=== PATIENT | female | born 1950 | race Caucasian/White ===

== ENCOUNTER 2019-10-22 10:39 | Outpatient (CLI) | payer MEDICARE, MEDICAID, SELFPAY ==
--- NOTE | 2019-10-22 11:07 | MM_ITS ---
WS: [id number] BILATERAL SCREENING MAMMOGRAM WITH GERONIMO DISPLACEMENT VIEWS. CAD PERFORMED. HISTORY: SCREENING COMPARISON: 09/17/2018 and 04/02/2006 Bilateral craniocaudal and mediolateral like views are performed. Geronimo displacement views in CC and MLO projection also performed. Breasts composition: There are scattered areas of fibroglandular density. Prepectoral and plantar partially calcified. No change in position or distention. There are numerous scattered asymmetries over each breast. No interval change. No suspicious grouping of calcifications. MM/[place] [id number] IMPRESSION: BI-RADS: 2-Benign FOLLOW-UP: 1 Year Follow-up
== END 2019-10-22 10:40 | disposition home or self-care (01) ==
LOC: RADSHAW 10:45
PROVIDERS: PCP Internal Medicine; Visit Provider Internal Medicine
DX: Z12.31 Encounter for screening mammogram for malignant neoplasm of breast (principal)
CPT/HCPCS: 77067

== ENCOUNTER 2019-11-03 20:00 | Outpatient (CLI) | payer MEDICARE, MEDICAID, SELFPAY | END 2019-11-03 20:01 | disposition home or self-care (01) | LOC: SLEEP 11-04 09:08 | PROVIDERS: PCP Internal Medicine; Visit Provider Nurse Practitioner Family | DX: G47.30 Sleep apnea, unspecified (principal) | CPT/HCPCS: 95810 ==

== ENCOUNTER 2021-01-28 06:47 | Observation (INO) | payer MEDICARE, MEDICAID, SELFPAY ==
[2021-01-28] VITALS (10 sets, daily range): BP systolic 89–138; BP diastolic 64–90; PULSE 54–68; RESP 16–18; TEMP 36.9–37.1; O2SAT 94–99; BMI 25.7
--- NOTE | 2021-01-28 07:01 | ECG_ITS ---
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 Measurements Intervals [place] Rate: 57 P: 29 VA: 152 QRS: 41 QRSD: 86 T: 30 QT: 426 QTc: 418 Interpretive Statements SINUS BRADYCARDIA NONSPECIFIC T-WAVE ABNORMALITY No previous ECG available for comparison Electronically Signed On 01-28-2021 18:32:22 CDT by Aguila Ann M.D. [id number]
--- NOTE | 2021-01-28 07:01 | XRR_ITS ---
PROCEDURE INFORMATION: Exam: XR Left Hand Exam date and time: 01/28/2021 7:01 AM Age: 70 years old Clinical indication: Injury or trauma; Other: Hit on something; Blunt trauma (contusions or hematomas); Bilateral; Injury date: Today; Injury details: PT hit posterior hand on flower pot this am, pain and brusing to posterior hand pinky area; Additional info: Pain fall TECHNIQUE: Imaging protocol: XR Left hand. Views: 3 or more views. COMPARISON: No relevant prior studies available. FINDINGS: Bones/joints: Osseous structures of the hand are without an acute process. Distal radioulnar joint and radiocarpal joints grossly normal. Carpus without fracture. Metacarpals and phalangeal without fracture or dislocation. No erosive changes or periarticular calcifications. Soft tissues: Normal. XR/XR hand LT min 3V* [id number] IMPRESSION: Normal hand. No fracture. No foreign body. Radiation Dose CTDIVOL = (mGy): DLP = (mGy-cm)
--- NOTE | 2021-01-28 07:27 | CT_ITS ---
WS: [id number] CT HEAD NONCONTRAST HISTORY: fall, closed head injury TECHNIQUE: Contiguous axial imaging performed through the brain in 2.5 mm imaging. Bone and soft tiss ue windows. Sagittal and coronal reformats reviewed. All CT scans at [facility] use at least one of these dose optimization techniques: automated exposure control; mA and/or kV adjustment per pa tient size (includes targeted exams where dose is matched to clinical indication); or iterative recon struction. DLP: 814.71 mGy.cm COMPARISON: 01/26/2011 No acute intracranial hemorrhage, midline shift or mass effect. Mild atrophy and mild chronic microvascular ischemic disease. No large infarcts. Ventricles: Normal size with no hydrocephalus. Paranasal sinuses: As visualized are clear. Mastoid air cells: Well pneumatized. Calvarium and scalp: Skull is intact with no soft tissue edema or swelling. LEFT optic nerve is enlarged as compared to the RIGHT. Very similar to the prior study of 01/26/2011. This was described on a prior CT of 01/26/2011. CT/CT head wo con* [id number] IMPRESSION: 1. No acute intracranial hemorrhage or edema. 2. Mild atrophy and mild chronic microvascular ischemic disease. 3. Long-term stability of an asymmetrically enlarged LEFT optic nerve sheath.
[2021-01-28 07:45] LABS: Basophils # 0.1 10^3/uL (0.0-0.1); Basophils % 0.7 %; Eosinophils # 0.2 10^3/uL (0.0-0.8); Eosinophils % 1.9 %; Hematocrit 40.1 % (37.0-47.0); Hemoglobin 13.8 g/dL (11.5-15.3); Lymphocytes % 11.8 %; Mean Corpuscular HGB Conc 34.4 g/dL (30.0-36.0); Mean Corpuscular Hemoglobin 31.2 pg (28.0-34.0); Mean Corpuscular Volume 90.7 fl (81-99); Monocytes # 0.4 10^3/uL (0.2-0.9); Monocytes % 4.9 %; Neutrophils # 7.05 10^3/uL (1.8-7.7); Neutrophils % 80.5 %; Nucleated Red Blood Cells % 0 %; Platelet Count 322 10^3/cmm (130-400); Red Blood Count 4.42 10^6/uL (4.1-5.3); Red Cell Distribution Width 12.3 % (12.1-15.1); White Blood Count 8.8 10^3/uL (4.0-10.0)
[2021-01-28 07:58] LABS: Add Urine Microscopic? YES; Bilirubin Urine Neg (Negative); Blood Urine 3+ (Negative); Glucose Urine UA Norm (Normal); Ketones Urine Negative (Negative); Leukocyte Esterase Urine Negative (Negative); Nitrate Urine Negative (Negative); Protein Urine Neg (Negative); Specific Gravity, Urine 1.025 (1.005-1.030); Urine Appearance Clear (CLEAR); Urine Color Yellow (Yellow); Urobilinogen Urine Norm (Negative); pH Urine 5 (5-7)
[2021-01-28 08:00] LABS: Add Urine Culture? No; Bacteria Urine 1+ /hpf; Mucus Urine 1+ /hpf; RBC Urine 0-4 /hpf (0-2)
[2021-01-28 08:15] LABS: Alanine Aminotransferase 17 U/L (0-33); Alkaline Phosphatase 171 IU/L (35-105); Anion Gap 14.2 (5-19); Aspartate Amino Transferase 12 U/L (0-32); Blood Urea Nitrogen 13 mg/dL (8-23); Calcium 9.1 mg/dL (8.5-10.5); Carbon Dioxide 26 mmol/L (22-29); Chloride 106 mmol/L (98-107); Globulin 2.6 g/dL (1.3-4.6); Glucose 98 mg/dL (65-115); Osmolality Calculated 294 mOsm/kg (285-295); Potassium 4.2 mmol/L (3.5-5.1); Sodium 142 mmol/L (136-145); Total Bilirubin 0.5 mg/dL (0.15-1.2); Total Protein 6.6 g/dL (6.6-8.7)
--- NOTE | 2021-01-28 09:12 | ED_ITS ---
HPI - Dizziness General: Chief Complaint: Dizziness Stated Complaint: NAUSEA/VOMITING Time Seen by Provider: 01/28/21 07:00 History of Present Illness: HPI Narrative: 70-year-old female presents emergency room with episode of orthostasis immediately after standing.. Patient was sleeping she got up suddenly and immediately jumped to her feet she got lightheaded and dizzy when she fell she hurt her left hand. She not strike her head or lose consciousness although should she still somewhat dizzy and disoriented. She complaining of nausea in route to the hospital by with EMS and she was given Zofran. She not had any vomiting or diarrhea she is not had any cough or shortness of breath. Patient is able answer most questions okay however she is little bit disoriented to time. She denies any chest pain with any of these episodes. She has had similar episode in the past no recent medication changes. MD elicited complaint: dizziness, lightheadedness and near syncope Onset (ago): minute(s) Timing: sudden onset Severity: mild Description: lightheadedness and near-syncope Context: change in body position History of similar symptoms: Yes Exacerbating factors: change in body position Relieving factors: remaining still Associated symptoms: Denies change in hearing, chest pain, chills, cough, diaphoresis, ear discharge, ear pressure, fevers/chills, headache(s), malaise, nausea, nasal congestion, palpitations, rash, short of breath, syncope, tinnitus, vomiting or weakness Associated neuro symptoms: Reports confusion; Deny difficulty speaking, dysphagia, diplopia, extremity weakness, facial numbness, facial weakness, gait changes, numbness in extremities or visual changes Review of Systems Const: Denies: chills, malaise or diaphoresis ENMT: Denies: ear discharge, change in hearing, tinnitus or nasal congestion Card: Denies: chest pain, palpitations or syncope Resp: Denies: dyspnea, productive cough or non-productive cough GI: Denies: nausea, vomiting or dysphagia : Denies: flank pain, difficulty voiding, dysuria, urinary frequency or urinary urgency Skin/Breast: Denies: rash or pruritus Neuro: Reports: confusion; Denies: headache(s) or numbness in extremities Physical Exam Const: COMMON NORMALS: no acute distress GENERAL APPEARANCE: cooperative and comfortable ORIENTATION/CONSCIOUSNESS: Yes awake HENMT: COMMON NORMALS: normocephalic, atraumatic, hearing grossly normal bilaterally, external ears normal, EAC's normal, TM's normal bilaterally, Normal nasal mucous membranes and turbinates present, moist oral mucous membranes and oropharynx normal HEAD & SCALP: normocephalic and atraumatic NOSE: Normal nasal mucous membranes and turbinates present EXTERNAL EAR: Yes external ears normal EXTERNAL AUDITORY CANAL: EAC's normal TYMPANIC MEMBRANE: TM's normal bilaterally Eye: COMMON NORMALS: Equal, round and reactive pupils present, EOMs intact bilaterally, conjunctivae normal and no scleral icterus CONJUNCTIVA: Yes conjunctivae normal PUPIL: Yes Equal, round and reactive pupils present Neck/C-Spine: COMMON NORMALS: full ROM, no lymphadenopathy, supple and no JVD Lymph: LYMPHATIC: no lymphadenopathy noted and no lymphedema noted Resp: COMMON NORMALS: normal respiratory effort, No retractions, No use of accessory muscles and clear to auscultation bilaterally AUSCULTATION: clear to auscultation bilaterally Cardio: COMMON NORMALS: no JVD, regular rate, regular rhythm and No murmurs present (Cardio) RATE: regular rate RHYTHM: regular rhythm GI: COMMON NORMALS: Soft to palpation and No hepatosplenomegaly present AUSCULTATION: Yes normoactive bowel sounds PALPATION: Yes Soft to palpation, No Tenderness to palpation present (GI), No Guarding due to palpation present (GI) and Yes No hepatosplenomegaly present Extremity: COMMON NORMALS: normal to inspection, capillary refill normal, no clubbing, cyanosis or edema, no calf tenderness and no pedal edema Skin: COMMON NORMALS: no rashes or lesions noted GENERAL SKIN EXAM: no rashes or lesions noted Course Vital Signs: Vital signs: Vital Signs Temperature 97.4 F L 01/29/21 08:00 Pulse Rate 89 01/29/21 10:01 Respiratory Rate 16 01/29/21 08:23 Blood Pressure 128/78 01/29/21 08:00 Pulse Oximetry 92 01/29/21 10:01 MDM - Dizziness MDM Narrative: Medical decision making narrative: Patient seemed to be doing better she was given fluids her pressure had improved she was feeling well and wanted to go home I went and talked to her and we are getting ready to discharge her however when we had her try to get up and ambulate she was unable to do so without the assistance to required assistance for any kind of movement or transfer. Initially became more confused and disoriented somewhat seem to be anxiety. Initial stroke score at best was 1 and a repeat it was unchanged he has some difficulty with placement of time but otherwise follows all commands and has no other focalized deficits. CT of her head was negative all labs and imaging reviewed as found on the chart. Patient is unsteady and weak and unable to go home at this point she may require an MRI. Considered CTA of the head however she has no vision problems and at best her stroke score is a 1, with more confusion than anything. Her symptoms began when she woke up after she sat up and tried to stand up quickly. Last known well would be sometime around 9-10 o'clock last night according to patient and family. Given that she is not a candidate for any kind of intervention with the low stroke score so CTA of the head and neck was not done in the emergency room. Discussed Dr. Falcon orders are written. Lab Data: Labs: Lab Results 01/28/21 01/28/21 01/28/21 07:20 07:20 07:30 WBC 8.8 10^3/uL 10^3/ uL (4.0-10.0) RBC 4.42 10^6/uL 10^6 /uL (4.1-5.3) Hgb 13.8 g/dL g/dL (11.5-15.3) Hct 40.1 % % (37.0-47.0) MCV 90.7 fl fl (81-99) MCH 31.2 pg pg (28.0-34.0) MCHC 34.4 g/dL g/dL (30.0-36.0) RDW 12.3 % % (12.1-15.1) Plt Count 322 10^3/cmm 10^3 /cmm (130-400) MPV 10.0 fL fL (7.4-10.4) Neut % (Auto) 80.5 % % Lymph % (Auto) 11.8 % % [place] % (Auto) 4.9 % % Eos % (Auto) 1.9 % % Baso % (Auto) 0.7 % % Neut # (Auto) 7.05 10^3/uL 10^3 /uL (1.8-7.7) Lymph # (Auto) 1.0 10^3/uL 10^3/ uL (0.8-4.8) [place] # (Auto) 0.4 10^3/uL 10^3/ uL (0.2-0.9) Eos # (Auto) 0.2 10^3/uL 10^3/ uL (0.0-0.8) Baso # (Auto) 0.1 10^3/uL 10^3/ uL (0.0-0.1) Nucleated RBC % (a uto) 0 % % Nucleated RBCs # 0.0 /100WBC /100W BC Sodium 142 mmol/L mmol/L (136-145) Potassium 4.2 mmol/L mmol/L (3.5-5.1) Chloride 106 mmol/L mmol/L (98-107) Carbon Dioxide 26 mmol/L mmol/L (22-29) Anion Gap 14.2 (5-19) BUN 13 mg/dL mg/dL (8-23) Creatinine 0.7 mg/dL mg/dL (0.5-0.9) GFR Calculation Not Reportable Glucose 98 mg/dL mg/dL (65-115) Calculated Osmolal ity 294 mOsm/kg mOsm/ kg (285-295) Calcium 9.1 mg/dL mg/dL (8.5-10.5) Total Bilirubin 0.5 mg/dL mg/dL (0.15-1.2) AST 12 U/L U/L (0-32) ALT 17 U/L U/L (0-33) Alkaline Phosphata se 171 IU/L H IU/L (35-105) Total Protein 6.6 g/dL g/dL (6.6-8.7) Albumin 4.0 g/dL g/dL (3.5-5.2) Globulin 2.6 g/dL g/dL (1.3-4.6) Urine Color Yellow (Yellow) Urine Appearance Clear (CLEAR) Urine pH 5 (5-7) Ur Specific Gravit y 1.025 (1.005-1.030) Urine Protein Neg (Negative) Urine Glucose (UA) Norm (Normal) Urine Ketones Negative (Negative) Urine Blood 3+ H (Negative) Urine Nitrate Negative (Negative) Urine Bilirubin Neg (Negative) Urine Urobilinogen Norm mg/dL mg/dL (Negative) Ur Leukocyte Beulah ase Negative (Negative) Urine RBC 0-4 /hpf H /hpf (0-2) Urine WBC None /hpf /hpf (0-5) Ur Squamous Epith Cells 10-15 /hpf H /hpf (0-5) Amorphous Sediment Not Reportable Urine Bacteria 1+ /hpf H /hpf (NONE) Urine Mucus 1+ /hpf /hpf Discharge Plan Discharge Patient Disposition: Home Clinical Impression: Orthostatic hypotension, Apnea, sleep Condition: Stable Discharge Diet: Usual diet Discharge Activity: Limit activity as instructed Coding Level of Care Code ED [employer] Worker for Marlee Rosales NIH stroke score NIHSS Level Of Consciousness - 1a: 1 Level Of Consciousness Questions - 1b: Both Correct Level Of Consciousness Commands - 1c: Both Correct Best Gaze - 2: Normal Visual Myers - 3: No Visual Loss Facial Palsy - 4: Normal Motor Arm Right - 5: No Drift Motor Arm Left - 5: No Drift Motor Leg Right - 6: No Drift Motor Leg Left - 6: No Drift Limb Ataxia - 7: Absent Sensory - 8: Normal Best Language - 9: No Aphasia Dysarthia - 10: Normal Extinction And Inattention - 11: 0 Score Total Score: 1
--- NOTE | 2021-01-28 12:49 | PC.NURSE ---
Pt up for discharge. This RN enters room at approximately 1046. Pt has increased weakness and bouts of confusion. ERP notified and comes to the room to reassess pt. ERP discussed admission with pt and with family. Pt agrees to admission into the hospital.
--- NOTE | 2021-01-28 13:06 | PC.PHAR ---
PT IS CONFUSED AND UNABLE TO VERIFY ALL HER MEDICATIONS-PTS SON IS UNSURE OF THE MEDICATIONS THE PT TAKES-T STATES SHE TAKES LISINOPRIL 5-10MG PRN PT STATES SHE HASNT TAKEN IN A WEEK-PT IS ALSO CONFUSED-RX FILLED ON 01/13/21 90D/S 10MG DAILY-PER ALMA DELIA AT [facility] STATES SHE DOESNT SEE ANYWHERE IN THE NOTES WHERE IT WAS CHANGED STATES THEY STILL HAVE 10MG DAILY-NOTES ARE MADE IN THE PHARMACY COMMENTS-MEDICATIONS ENTERED ARE MEDS THAT SHOW ON EXT MED HISTORY AND WHAT [facility] HAS ON THEIR MED LIST BESIDES IBU PT STATES SHE TAKES PRN
[2021-01-28] MEDS: acetaminophen 1,000 MG/100 ML PIGGYBACK 400 MG IV (13:14)
--- NOTE | 2021-01-28 16:41 | P.HP_ITS ---
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 She denied any chest pain, shortness of breath, nausea, palpitation, fever,cough. Work up done so far includes: C.T Head without contrast: No acute intracranial pathology XR hand LT : No fracture. CBC CMP did not show any gross abnormalities, urinalysis is clean. Orthostatic vital signs done in ER was positive: Review of Systems General: Reports: 10 or more systems reviewed and unremarkable except in HPI and below Narrative: 67-year-old currently not in acute distress being admitted for chest pain evaluation Const: Denies: fever(s), chills, body aches, change in appetite or diaphoresis Card: Denies: palpitations, edema, swelling of feet/ankles, dyspnea on exertion, orthopnea or leg pain with exertion Resp: Denies: dyspnea, productive cough, wheezing or pain on inspiration GI: Denies: abdominal pain, nausea, vomiting, diarrhea or constipation : Denies: flank pain Musc: Denies: back pain, extremity pain or extremity swelling Neuro: Denies: headache(s), difficulty walking or confusion Medications/Allergies Home Medications Medication Instructions Recorded Confirmed Last Taken Type ibuprofen 200 mg PO Q4H PRN 01/28/21 01/28/21 Unknown History lisinopril 5 - 10 mg PO DAILY PRN 01/28/21 01/28/21 Unknown History omeprazole 40 mg PO DAILY 01/28/21 01/28/21 Unknown History oxycodone-acetaminophen 1 tab PO TID PRN 01/28/21 01/28/21 Unknown History Allergies Allergy/AdvReac Type Severity Reaction Status Date / Time No Known Allergies Allergy Verified 06/09/20 08:35 Vitals/I&O/Wt Last Vital Signs Temp 98.8 F 01/28/21 06:51 Pulse 64 01/28/21 13:44 Resp 17 01/28/21 13:44 BP 115/75 01/28/21 13:44 Pulse Ox 96 01/28/21 13:44 01/28/21 01/28/21 01/28/21 06:59 14:59 22:59 Intake Total 100 / 100 Balance 100 / 100 Weight last 48 hrs Weight 68.039 kg Physical Exam Const: COMMON NORMALS: patient oriented x3 HENMT: COMMON NORMALS: normocephalic and atraumatic HEAD & SCALP: normocephalic and atraumatic Resp: COMMON NORMALS: clear to auscultation bilaterally AUSCULTATION: clear to auscultation bilaterally Cardio: COMMON NORMALS: regular rate, regular rhythm, S1 normal heart sound present, S2 normal heart sound present, No gallops present (Cardio), No murmurs present (Cardio), No rub (Cardio) and Peripheral pulses 2+ throughout RATE: regular rate RHYTHM: regular rhythm HEART SOUNDS: S1 normal heart sound present and S2 normal heart sound present PERIPHERAL PULSES: Peripheral pulses 2+ throughout GI: COMMON NORMALS: Normal to inspection, nondistended, normoactive bowel sounds present, Soft to palpation, non-tender, No hepatosplenomegaly present and no masses AUSCULTATION: Yes normoactive bowel sounds PALPATION: Yes Soft to palpation and Yes No hepatosplenomegaly present RECTAL EXAM: deferred Extremity: COMMON NORMALS: no clubbing, cyanosis or edema and no pedal edema Neuro: COMMON NORMALS: patient oriented x3 Data : 01/28/21 07:20 01/28/21 07:20 A&P Assessment and plan (1) Orthostatic hypotension: Orthostatic vitals checks every 6 hours Fall precaution Telemetry monitoring IV hydration with normal saline 75 cc an hour Midodrine as needed Continue to hold lisinopril Compression stockings Status: Acute (2) Hypertension: Status: Acute (3) Neurofibromatosis: Status: Acute Additional A&P Information Patient is extremely anxious and restless: Ativan 1 mg IV every 8 as needed, Haldol 5 mg IV every 8 as needed CODE STATUS: Full code DVT prophylaxis Lovenox Attestations Medical Necessity Statement*: Patient needs to be in hospital for management of symptomatic orthostatic hypotension. Coding Level of Care Code Acute [place] for [facility] Bobby Diagnoses Orthostatic hypotension I95.1 Hypertension I10 Neurofibromatosis Q85.00
[2021-01-28] MEDS: LORazepam 2 mg/mL INJ 1 mL 1 MG IVP (17:25)
[2021-01-28] MEDS: oxyCODONE-APAP 5-325 mg Tablet 1 TAB PO (17:43)
[2021-01-28] MEDS: enoxaparin 40 mg/0.4 mL Syringe SUBCUT (17:43)
[2021-01-28] MEDS: sodium chloride 0.9% 1,000 ML 100 ML IV (18:25)
[2021-01-29] VITALS (15 sets, daily range): BP systolic 108–158; BP diastolic 66–93; PULSE 64–115; RESP 14–20; TEMP 36.3–37.2; O2SAT 92–99
[2021-01-29] MEDS: acetaminophen 325 mg Tablet 650 MG PO ×2 (00:01→11:57)
[2021-01-29] MEDS: oxyCODONE-APAP 5-325 mg Tablet 1 TAB PO ×3 (00:58→17:47)
[2021-01-29] MEDS: sodium chloride 0.9% 1,000 ML 100 ML IV (04:26)
--- NOTE | 2021-01-29 05:31 | PC.NURSE ---
Patient has complained of headache. Ordered tylenol and oxycodone both administered. Patient continues to complains of headaches with an aura radiating down her neck and into her shoulders. No Neuro deficits. Patient is alert and oriented. Physician notified with orders for Morphine 2mg IVP ONCE Vitals are WNL
[2021-01-29] MEDS: morphine 4 mg/mL SDV 1 mL 2 MG IVP (05:34)
--- NOTE | 2021-01-29 05:47 | PC.NURSE ---
This nurse asked patient if she had any allergies when applying allergy bracelet. Patient states that she is allergic to penicillins with rash and hives all over her body with difficulty breathing. Allergy list edited with a new allergy band places on patient to show new updated information.
[2021-01-29] MEDS: pantoprazole DR 40 mg Tablet PO (08:23)
[2021-01-29] MEDS: LORazepam 2 mg/mL INJ 1 mL 1 MG IVP (11:55)
[2021-01-29 12:40] LABS: Basophils # 0.1 10^3/uL (0.0-0.1); Basophils % 0.9 %; Eosinophils # 0.1 10^3/uL (0.0-0.8); Eosinophils % 1.6 %; Hematocrit 37.7 % (37.0-47.0); Hemoglobin 12.6 g/dL (11.5-15.3); Lymphocytes # 1.7 10^3/uL (0.8-4.8); Lymphocytes % 24.7 %; Mean Corpuscular HGB Conc 33.4 g/dL (30.0-36.0); Mean Corpuscular Hemoglobin 31.2 pg (28.0-34.0); Mean Corpuscular Volume 93.3 fl (81-99); Mean Platelet Volume 10.2 fL (7.4-10.4); Monocytes # 0.4 10^3/uL (0.2-0.9); Monocytes % 6.1 %; Neutrophils # 4.57 10^3/uL (1.8-7.7); Neutrophils % 66.3 %; Nucleated Red Blood Cells % 0 %; Platelet Count 267 10^3/cmm (130-400); Red Blood Count 4.04 10^6/uL (4.1-5.3); Red Cell Distribution Width 12.4 % (12.1-15.1); White Blood Count 6.9 10^3/uL (4.0-10.0)
--- NOTE | 2021-01-29 13:07 | CTR_ITS ---
PROCEDURE INFORMATION: Exam: CT Cervical Spine Without Contrast Exam date and time: 01/29/2021 1:07 PM Age: 70 years old Clinical indication: Neck pain; Additional info: Severe neck pain TECHNIQUE: Imaging protocol: Computed tomography images of the cervical spine without contrast. Radiation optimization: All CT scans at this facility use at least one of these dose optimization techniques: automated exposure control; mA and/or kV adjustment per patient size (includes targeted exams where dose is matched to clinical indication); or iterative reconstruction. COMPARISON: CT neck w con* [id number] 09/04/2018 11:06 AM RADIATION DOSE METRICS: Total DLP (mGy-cm): 700.53 FINDINGS: Bones/joints: No acute fracture. Normal alignment. Discs/Spinal canal/Neural foramina: Disc bulge/protrusion seen at C5-C6 with at least moderate central canal stenosis. No significant neural foraminal narrowing. Thyroid: There is a 2.5 cm nodule in the left thyroid lobe containing a punctate calcification. Lungs: Lung apices are normal. Soft tissues: Unremarkable. CT/CT cervical spin wo con* [id number] IMPRESSION: 1. No acute osseous abnormalities of the cervical spine. 2. Disc bulge/protrusion seen at C5-C6 with at least moderate spinal stenosis at this region. 3. Incidental note of a 2.5 cm nodule in the left thyroid lobe. ACR recommendations given below. COMMENTS: Consistent with the [employer] [place] [employer]'s Incidental Findings Committee white paper (J Am Errol Radiol 2015): In patients aged 35 years and older with an incidental thyroid nodule equal to or greater than 1.[address], MRI or extrathyroidal US, further evaluation with dedicated thyroid US is recommended for patients with normal life expectancy and without comorbidities. For smaller nodules without suspicious features, no further evaluation or follow up is recommended. Radiation Dose CTDIVOL = (mGy): DLP = 700.53 (mGy-cm)
--- NOTE | 2021-01-29 13:08 | CTR_ITS ---
PROCEDURE INFORMATION: Exam: CT Lumbar Spine Without Contrast Exam date and time: 01/29/2021 1:08 PM Age: 70 years old Clinical indication: Low back pain; Prior surgery; Surgery type: Mid back down TECHNIQUE: Imaging protocol: Computed tomography images of the lumbar spine without contrast. Radiation optimization: All CT scans at this facility use at least one of these dose optimization techniques: automated exposure control; mA and/or kV adjustment per patient size (includes targeted exams where dose is matched to clinical indication); or iterative reconstruction. COMPARISON: CT thoracic spin wo con* [id number] 01/29/2021 1:42 PM RADIATION DOSE METRICS: Total DLP (mGy-cm): 1681.36 FINDINGS: Vertebrae: Severe dextroscoliosis of the lumbar spine with wedging and endplate degenerative changes along the left lateral aspect of the upper lumbar spine at the area of greatest angulation. No evidence of acute fracture. Posterior spinal fusion device terminates at the level of L1. Discs/Spinal canal/Neural foramina: There is at least moderate central canal stenosis at the level of L3-L4 secondary to facet arthropathy and posterior disc bulge at this location. Soft tissues: Unremarkable. CT/CT lumbar spine wo con* [id number] IMPRESSION: 1. Severe dextroscoliosis of the lumbar spine with associated degenerative changes. No acute osseous abnormalities of the lumbar spine. 2. At least moderate central canal stenosis at L3-L4. Radiation Dose CTDIVOL = (mGy): DLP = 1681.36 (mGy-cm)
--- NOTE | 2021-01-29 13:10 | CTR_ITS ---
PROCEDURE INFORMATION: Exam: CT Thoracic Spine Without Contrast Exam date and time: 01/29/2021 1:10 PM Age: 70 years old Clinical indication: Pain in thoracic spine; Prior surgery; Surgery type: Back; Additional info: Back pain TECHNIQUE: Imaging protocol: Computed tomography images of the thoracic spine without contrast. Radiation optimization: All CT scans at this facility use at least one of these dose optimization techniques: automated exposure control; mA and/or kV adjustment per patient size (includes targeted exams where dose is matched to clinical indication); or iterative reconstruction. COMPARISON: CT cervical spin wo con* [id number] 01/29/2021 1:39 PM RADIATION DOSE METRICS: Total DLP (mGy-cm): 2135.12 FINDINGS: Vertebrae: Severe levoscoliosis of the thoracic spine with multilevel stabilizing rods and hooks. Areas of wedging are seen along the right lateral vertebral bodies at the area of greatest angulation, no evidence of acute fracture. Multilevel endplate degenerative changes most significant at the lower thoracic/lumbar spine. Discs/Spinal canal/Neural foramina: The sensitivity for evaluating spinal canal and neural foraminal narrowing is limited secondary to the severe scoliosis and streak artifact from the posterior spinal fusion device. No evidence severe spinal canal stenosis. Soft tissues: Unremarkable. CT/CT thoracic spin wo con* [id number] IMPRESSION: Severe levoscoliosis of thoracic spine with posterior spinal fusion hardware with associated degenerative changes. No acute osseous abnormalities of the thoracic spine. Radiation Dose CTDIVOL = (mGy): DLP = 2135.12 (mGy-cm)
[2021-01-29 13:11] LABS: Alanine Aminotransferase 12 U/L (0-33); Albumin Level 3.6 g/dL (3.5-5.2); Alkaline Phosphatase 148 IU/L (35-105); Aspartate Amino Transferase 13 U/L (0-32); Blood Urea Nitrogen 12 mg/dL (8-23); Calcium 8.7 mg/dL (8.5-10.5); Carbon Dioxide 23 mmol/L (22-29); Chloride 110 mmol/L (98-107); Globulin 2.1 g/dL (1.3-4.6); Glucose 84 mg/dL (65-115); Osmolality Calculated 295 mOsm/kg (285-295); Sodium 143 mmol/L (136-145); Total Bilirubin 0.6 mg/dL (0.15-1.2); Total Protein 5.7 g/dL (6.6-8.7)
--- NOTE | 2021-01-29 13:13 | PM.PN ---
Subjective Subjective: Interval history: Patient was seen and examined this morning, continue to complain of severe back pain, weakness as well difficulty with ambulation.C.T Spine has shown chronic changes.No acute findings. Medications: Reviewed: Yes Vitals/I&O/Wt Last Vital Signs Temp 97.4 F L 01/29/21 08:00 Pulse 73 01/29/21 11:58 Resp 18 01/29/21 11:58 BP 117/77 01/29/21 11:58 Pulse Ox 97 01/29/21 11:58 01/28/21 01/29/21 01/29/21 22:59 06:59 14:59 Intake Total 100 / 100 1000 / 1100 Balance 100 / 100 1000 / 1100 Weight last 48 hrs Weight 68.039 kg Physical Exam Const: COMMON NORMALS: patient oriented x3 HENMT: COMMON NORMALS: normocephalic and atraumatic HEAD & SCALP: normocephalic and atraumatic Resp: COMMON NORMALS: clear to auscultation bilaterally EFFORT & INSPECTION: Yes symmetric chest movement AUSCULTATION: clear to auscultation bilaterally Cardio: COMMON NORMALS: regular rate, regular rhythm, S1 normal heart sound present, S2 normal heart sound present, No gallops present (Cardio), No murmurs present (Cardio), No rub (Cardio) and Peripheral pulses 2+ throughout RATE: regular rate RHYTHM: regular rhythm HEART SOUNDS: S1 normal heart sound present and S2 normal heart sound present PERIPHERAL PULSES: Peripheral pulses 2+ throughout GI: COMMON NORMALS: Normal to inspection, nondistended, normoactive bowel sounds present, Soft to palpation, non-tender, No hepatosplenomegaly present and no masses AUSCULTATION: Yes normoactive bowel sounds PALPATION: Yes Soft to palpation and Yes No hepatosplenomegaly present RECTAL EXAM: deferred Extremity: COMMON NORMALS: no clubbing, cyanosis or edema and no pedal edema Neuro: COMMON NORMALS: patient oriented x3 Data : 01/29/21 12:10 01/29/21 12:10 A&P Assessment and plan (1) Orthostatic hypotension: Orthostatic vitals checks every 6 hours Fall precaution Telemetry monitoring IV hydration with normal saline 75 cc an hour Midodrine as needed Continue to hold lisinopril Compression stockings Status: Acute (2) Migraine: Was started on Topiramate 100 mg BID Toradol PRN Status: Acute (3) Hypertension: Status: Acute (4) Neurofibromatosis: Status: Acute Additional A&P Information Patient is extremely anxious and restless: Ativan 1 mg IV every 8 as needed, Haldol 5 mg IV every 8 as needed CODE STATUS: Full code DVT prophylaxis Lovenox Attestations Medical Necessity Statement*: Patient is still complaining of severe weakness and back pain.She thinks she is very weak and is not ready to go home. Need hospitalization for continued care. Coding Level of Care Code Acute [employer] Laboratory Director for Marlee Rosales Diagnoses Orthostatic hypotension I95.1 Migraine G43.909 Hypertension I10 Neurofibromatosis Q85.00
[2021-01-29 13:34] LABS: Anion Gap 14.5 (5-19); Potassium 4.5 mmol/L (3.5-5.1)
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
[2021-01-29] MEDS: topiramate 100 mg Tablet PO ×2 (14:28→17:42)
[2021-01-29] MEDS: enoxaparin 40 mg/0.4 mL Syringe SUBCUT (17:42)
[2021-01-29] MEDS: cyclobenzaprine 10 mg Tablet PO (21:09)
[2021-01-30] VITALS (7 sets, daily range): BP systolic 101–130; BP diastolic 68–87; PULSE 68–82; RESP 14–18; TEMP 36.6–36.7; O2SAT 93–96
[2021-01-30] MEDS: oxyCODONE-APAP 5-325 mg Tablet 1 TAB PO (02:04)
[2021-01-30] MEDS: pantoprazole DR 40 mg Tablet PO (08:23)
[2021-01-30] MEDS: topiramate 100 mg Tablet PO (08:23)
[2021-01-30] MEDS: ketorolac 10 mg Tablet PO (08:23)
--- NOTE | 2021-01-30 08:29 | PC.NURSE ---
PT/DAUGHTER DAUGHTER AT SIDE - PT CONTINUES TO COMPLAIN OF A VILLANUEVA 01/23 - STATES SHE IS DIZZY AND WEAK AND THAT SHE FEELS SOMETHING IS NOT RIGHT - PT AND DAUGHTER CONCERNED WITH POSSIBLE DISCHARGE TODAY - WILL DISCUSS WITH DOCTOR
--- NOTE | 2021-01-30 09:19 | PC.NURSE ---
VILLANUEVA VILLANUEVA CONTINUES AT 01/23 - PT STATES NONE OF THE MEDICATIONS ARE HELPING HEAD - DAUGHTERS AT SIDE - PHYSICAL EXASM OF HEAD PER THIS NURSE NOTED SLIGHT EDEMA TO LEFT LOWER POSTERIOR SKULL - NO ABRASION NOTED - WILL MONITOR AND DISCUSS WITH
--- NOTE | 2021-01-30 09:37 | PC.NURSE ---
DR MARCELO ROBERTSON AT PTS SIDE - DAUGHTER VOICING CONCERNS IN MOMS CURRENT STATE - DR ROBERTSON ANSWERING QUESTIONS AT PRESENT TIME - PT CONTINUES TO BE ABLE TO STATE NAME, DATE, PLACE AND SITUATION
--- NOTE | 2021-01-30 10:22 | P.DS_ITS ---
Discharge Providers Date of Admission: 01/28/21 12:56 Date of Discharge: January 30, 2021 Attending Provider at Admission: Fransisco Falcon MD Attending Provider at Discharge: Fransisco Falcon MD Primary Care Provider: Vicenta Mejia DO Diagnoses at Discharge Discharge Diagnosis (1) Orthostatic hypotension: Status: Acute (2) Migraine: Status: Acute (3) Hypertension: Status: Acute (4) Neurofibromatosis: Status: Acute Reason for Visit Reason for Visit: NAUSEA/VOMITING Hospital Course Hospital Course Shirley Medina is a 70 year old female with PMH of NF -1, HTN came after she experinced a fall at her home, she woke up this morning and left her bed in hury when she felt dizzy and lightheaded after which she had a fall during which time she her lt hand.When I examined the patient she was not aware why she is in hospital and is lot of emotional distress.She is complaining of severe global headache.She was complaining of nausea in route to the hospital by with EMS and was given Zofran for that. She denied any chest pain, shortness of breath, nausea, palpitation, fever,cough. Work up done so far includes: C.T Head without contrast: No acute intracranial pathology XR hand LT : No fracture. CBC CMP did not show any gross abnormalities, urinalysis is clean. Orthostatic vital signs done in ER was positive: She was admitted for the management for symptomatic orthostatic hypotension. was kept on I.V hydration, anti htn medications were kept on hold.Telemetry monitoring failed to reveal any significant arrhythymia,since she was complaining of severe back pain and neck pain c/t spine with contrast was done.CT cervical spin wo con:No acute osseous abnormalities of the cervical spine. Disc bulge/protrusion seen at C5-C6 with at least moderate spinal stenosis at this region. CT lumbar spine wo con: Severe dextroscoliosis of the lumbar spine with associated degenerative changes. No acute osseous abnormalities of the lumbar spine. At least moderate central canal stenosis at L3-L4. CT thoracic spin wo con: Severe levoscoliosis of thoracic spine with posterior spinal fusion hardware with associated degenerative changes. No acute osseous abnormalities of the thoracic spine. Adequate pain control was done.At the time of discharge her orthostatic hypotension has resolved.She was still complaining of severe weakness and still needed some support to ambulate.she was offered to go to SNF but family wanted her to go home. They are of the opinion she has good family support and will take care of her.She has been advised to continue with her pcp. Overall she has improved.And is being discharged in stable condition. Physical Exam Const: COMMON NORMALS: patient oriented x3 HENMT: COMMON NORMALS: normocephalic and atraumatic HEAD & SCALP: normocephalic and atraumatic Resp: COMMON NORMALS: clear to auscultation bilaterally EFFORT & INSPECTION: Yes symmetric chest movement AUSCULTATION: clear to auscultation bilaterally Cardio: COMMON NORMALS: regular rate, regular rhythm, S1 normal heart sound present, S2 normal heart sound present, No gallops present (Cardio), No murmurs present (Cardio), No rub (Cardio) and Peripheral pulses 2+ throughout RATE: regular rate RHYTHM: regular rhythm HEART SOUNDS: S1 normal heart sound present and S2 normal heart sound present PERIPHERAL PULSES: Peripheral pulses 2+ throughout GI: COMMON NORMALS: Normal to inspection, nondistended, normoactive bowel sounds present, Soft to palpation, non-tender, No hepatosplenomegaly present and no masses AUSCULTATION: Yes normoactive bowel sounds PALPATION: Yes Soft to palpation and Yes No hepatosplenomegaly present RECTAL EXAM: deferred Extremity: COMMON NORMALS: no clubbing, cyanosis or edema and no pedal edema Neuro: COMMON NORMALS: patient oriented x3 Discharge Data Data Completed and Pending: Completed Studies During Hospitalization Category Date Time Status CT cervical spin wo con* [id number] Rout ine Cat Scan 01/29/21 13:[address] head wo con* [id number] Stat Cat Scan 01/28/21 07:[address] lumbar spine w o con* [id number] Routi ne Cat Scan 01/29/21 13:[address] thoracic spin wo con* [id number] Rout ine Cat Scan 01/29/21 13:10 Completed XR hand LT min 3V * [id number] Stat Exams 01/28/21 07:01 Completed Pending at discharge Category Date Time Status Blood Culture Sta t Lab 01/30/21 09:36 Ordered Labs from last 24 hours 01/29/21 01/29/21 12:10 12:10 WBC 6.9 RBC 4.04 L Hgb 12.6 Hct 37.7 MCV 93.3 MCH 31.2 MCHC 33.4 RDW 12.4 Plt Count 267 MPV 10.2 Neut % (Auto) 66.3 Lymph % (Auto) 24.7 Wallace % (Auto) 6.1 Eos % (Auto) 1.6 Baso % (Auto) 0.9 Neut # (Auto) 4.57 Lymph # (Auto) 1.7 Wallace # (Auto) 0.4 Eos # (Auto) 0.1 Baso # (Auto) 0.1 Nucleated RBC % (a uto) 0 Nucleated RBCs # 0.0 Sodium 143 Potassium 4.5 Chloride 110 H Carbon Dioxide 23 Anion Gap 14.5 BUN 12 Creatinine 0.5 GFR Calculation Not Reportable Glucose 84 Calculated Osmolal ity 295 Calcium 8.7 Total Bilirubin 0.6 AST 13 ALT 12 Alkaline Phosphata se 148 H Total Protein 5.7 L Albumin 3.6 Globulin 2.1 Vitals: Last Vital Signs Temp 97.9 F 01/30/21 07:25 Pulse 82 01/30/21 07:25 Resp 16 01/30/21 07:25 BP 101/68 01/30/21 07:25 Pulse Ox 96 01/30/21 07:25 Discharge Plan Discharge Patient Disposition: Home Condition: Stable Prescriptions: Continued omeprazole 40 mg capsule,delayed release(DR/EC) 40 mg PO DAILY RF: 0 oxycodone-acetaminophen 10-325 mg tablet 1 tab PO TID PRN (Reason: Pain) RF: 0 lisinopril 10 mg tablet 5 - 10 mg PO DAILY PRN (Reason: SEE PHARMACY COMMENT-RX FILLED 01/13/21 10MG DAILY ) RF: 0 ibuprofen 200 mg Tablet 200 mg PO Q4H PRN (Reason: Pain) RF: 0 Discharge Orders: Discharge Order (Routine); Ordered 01/30/21 Ordered By: Fransisco Falcon Other Ambulatory Orders: DME: [employer] (Order) Location: None Selected Ordered By: Fransisco Falcon Referrals: Vicenta Mejia DO [Primary Care Provider] - 02/01/21 9:00 am (Please schedule a follow up appointment to see Dr. Mejia within one week. You will see Adrianna Kennedy at this appointment) Discharge Diet: Usual diet Discharge Activity: Limit activity as instructed Patient Instructions: Opioid Safety Activity Restrictions/Additional Instructions: Encourage use of CPAP as previously prescribed. Follow-up with your primary care doc within the next week. Return if you have further problems. Discharge Attestations Time Spent in Discharge Care*: less than 30 min Specific Discharge Activities: educating patient, educating and/or supporting family/caregiver, discussing with pcp/other providers, discussing with community case manager/social workers/dc planners, documenting/other paperwork and evaluating patient/reviewing data Status at Discharge: Cognitive status at discharge: cognitively intact , Behavioral status at discharge: cooperative , Functional status at discharge: other assisted ambulation Overall status at discharge: patient is back to baseline Quality Metrics Clinical Quality Measures During this hospital stay, did patient experience: None Coding Level of Care Code Acute [facility] FW DC note Diagnoses Orthostatic hypotension I95.1 Migraine G43.909 Hypertension I10 Neurofibromatosis Q85.00
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
--- NOTE | 2021-01-30 11:03 | PC.NURSE ---
DISCHARGE INSTRUCTIONS DISCHARGE INSTRUCTIONS GIVEN PER THIS NURSE - BOTH PT AND FAMILY VERBALIZE UNDERSTANDING
== END 2021-01-30 11:22 | disposition home or self-care (01) ==
LOC: ER 11:39 → MEDSURG 15:27
PROVIDERS: Admitting Provider Internal Medicine; Emergency Provider Family Medicine; PCP Internal Medicine; Visit Provider Internal Medicine
DX: I95.1 Orthostatic hypotension (principal); G43.909 Migraine, unspecified, not intractable, without status migrainosus; I10 Essential (primary) hypertension; Q85.00 Neurofibromatosis, unspecified; Z91.81 History of falling
CPT/HCPCS: 36415; 70450; 72125; 72128; 72131; 73130; 80053; 81001; 85025; 87040; 93005; 96361; 96372; 96374; 96375; 97162; 97530; 99285; G0378; J1650; J2060; J2270; J7030

== ENCOUNTER → 2021-04-19 09:58 | Outpatient (BNVA) | payer MEDICARE, SELFPAY | PROVIDERS: PCP Internal Medicine; Visit Provider Nurse Practitioner | DX: I10 Essential (primary) hypertension (principal); I63.9 Cerebral infarction, unspecified; K21.9 Gastro-esophageal reflux disease without esophagitis | CPT/HCPCS: 80053; 80061; 84443; 85025 ==

== ENCOUNTER 2021-04-29 15:02 | Emergency (ER) | payer MEDICARE, MEDICAID, SELFPAY ==
--- NOTE | 2021-04-29 15:06 | W.ED.NEUROSD ---
HPI - Neuro Symptoms/Deficit General: Chief Complaint: COVID symptoms Stated Complaint: POSSIBLE STROKE Time Seen by Provider: 04/29/21 15:06 History of Present Illness: HPI Narrative: 70-year-old female presents to the emergency room with slurring of speech and aphasia. But she has had this for some time last January 2021 she had a stroke which she states left her with these deficits that remain largely unchanged. She is awake and alert active. She has no other focal neurologic deficits no facial droop she does not have any arm drift. She has had a cough and had some diarrhea. Several family members have had COVID she has been vaccinated. She has had a slight cough no shortness of breath Onset (ago): month(s) Location: speech Severity: mild Quality: weak Relieving factors: none Exacerbating factors: none Associated symptoms: Reports cough; Deny chest pain, diaphoresis, fevers/chills, headache(s), anorexia, malaise, nausea, seizures, short of breath, syncope, tingling, vertigo, vomiting or weakness Treatments Prior to Arrival: none Review of Systems Const: Denies: malaise or diaphoresis ENMT: Denies: throat pain, ear or mastoid pain, nasal discharge or nasal congestion Card: Denies: chest pain or syncope Resp: Reports: non-productive cough; Denies: dyspnea or productive cough GI: Denies: nausea or vomiting : Denies: flank pain, difficulty voiding, dysuria, urinary frequency or urinary urgency Skin/Breast: Denies: rash or pruritus Neuro: Denies: headache(s) or vertigo [facility] ED PFSH: Medical History Acid reflux Acquired scoliosis Apnea, sleep Cerebrovascular accident (CVA) with involvement of left side of body 01/28/2021 HERMINIO (generalized anxiety disorder) Hypertension Migraine Neurofibromatosis Orthostatic hypotension Surgical History History of breast augmentation History of section History of gastric bypass 2015 History of hysterectomy Family History Mother Lung disease Father Stroke Other Cancer Hypertension Denies family history of Diabetes Dementia Social History (Reviewed 04/29/21 @ 15:07 by MAX Causey Smoking and tobacco status: never smoked Second hand smoke exposure: No Smoking risk assessment/counseling performed?: No Alcohol intake: never Desire information about alcohol rehabilitation?: No Counseling given: No Desire information about substance/drug rehabilitation?: No Counseling given: No Adopted: No Caregiver/support person: Yes Lives independently: Yes Household members: none Housing: House Marital status: Number of children: 13 service: No Current occupational status: retired Pets and animals: No History of recent travel: No Current gender identity: Female NIH stroke score NIHSS: Level Of Consciousness - 1a: 0 Level Of Consciousness Questions - 1b: Both Correct Level Of Consciousness Commands - 1c: Both Correct Best Gaze - 2: Normal Visual Myers - 3: No Visual Loss Facial Palsy - 4: Normal Motor Arm Right - 5: No Drift Motor Arm Left - 5: No Drift Motor Leg Right - 6: No Drift Motor Leg Left - 6: No Drift Limb Ataxia - 7: Absent Sensory - 8: Normal Best Language - 9: No Aphasia Dysarthia - 10: Mild/Moderate Dysarthia Extinction And Inattention - 11: 0 Score: Total Score: 1 Physical Exam Const: COMMON NORMALS: no acute distress GENERAL APPEARANCE: cooperative and comfortable ORIENTATION/CONSCIOUSNESS: Yes awake, Yes oriented to person, Yes oriented to place and Yes oriented to time HENMT: COMMON NORMALS: normocephalic, atraumatic and hearing grossly normal bilaterally HEAD & SCALP: normocephalic and atraumatic Neck/C-Spine: COMMON NORMALS: no JVD Resp: COMMON NORMALS: normal respiratory effort, No retractions, No use of accessory muscles and clear to auscultation bilaterally AUSCULTATION: clear to auscultation bilaterally Cardio: COMMON NORMALS: no JVD, regular rate, regular rhythm and No murmurs present (Cardio) RATE: regular rate RHYTHM: regular rhythm GI: COMMON NORMALS: Soft to palpation and No hepatosplenomegaly present AUSCULTATION: Yes normoactive bowel sounds PALPATION: Yes Soft to palpation, No Tenderness to palpation present (GI), No Guarding due to palpation present (GI) and Yes No hepatosplenomegaly present Extremity: COMMON NORMALS: normal to inspection, capillary refill normal, no clubbing, cyanosis or edema, no calf tenderness and no pedal edema Neuro: SENSORIUM/ORIENTATION: Yes oriented to person, Yes oriented to place and Yes oriented to time Skin: COMMON NORMALS: no rashes or lesions noted GENERAL SKIN EXAM: no rashes or lesions noted Course Vital Signs: Vital signs: Vital Signs Temperature 98.2 F 04/29/21 15:16 Pulse Rate 90 04/29/21 18:31 Respiratory Rate 22 H 04/29/21 18:31 Blood Pressure 98/66 04/29/21 18:31 Pulse Oximetry 99 04/29/21 18:31 MDM - Neuro Symptoms/Deficit MDM Narrative Medical decision making narrative: Patient is Covid positive. Her stroke score is only positive her previous symptoms. She is not a candidate for any kind of intervention. Discharge back to the [facility] routine care she does not need intervention for the COVID it appears her vaccination has provided adequate protection that her disease course is quite mild. Follow-up if has any worsening or change problems. Medical Records Attestation: I reviewed the patient's medical records. Lab Data Attestation: I reviewed the patient's lab results. Result diagrams: 04/29/21 15:43 04/29/21 15:43 Labs: Lab Results 04/29/21 04/29/21 04/29/21 15:43 15:43 15:43 WBC 6.6 10^3/uL 10^3/uL (4.0-10.0) RBC 4.13 10^6/uL 10^6/uL (4.1-5.3) Hgb 12.4 g/dL g/dL (11.5-15.3) Hct 37.8 % % (37.0-47.0) MCV 91.5 fl fl (81-99) MCH 30.0 pg pg (28.0-34.0) MCHC 32.8 g/dL g/dL (30.0-36.0) RDW 11.9 % L % (12.1-15.1) Plt Count 239 10^3/cmm 10^3/cmm (130-400) MPV 10.7 fL H fL (7.4-10.4) Neut % (Auto) 67.2 % % Lymph % (Auto) 22.5 % % Hood % (Auto) 6.6 % % Eos % (Auto) 2.7 % % Baso % (Auto) 0.8 % % Neut # (Auto) 4.45 10^3/uL 10^3/uL (1.8-7.7) Lymph # (Auto) 1.5 10^3/uL 10^3/uL (0.8-4.8) Hood # (Auto) 0.4 10^3/uL 10^3/uL (0.2-0.9) Eos # (Auto) 0.2 10^3/uL 10^3/uL (0.0-0.8) Baso # (Auto) 0.1 10^3/uL 10^3/uL (0.0-0.1) Nucleated RBC % (auto) 0 % % Nucleated RBCs # 0.0 /100WBC /100WBC Sodium 139 mmol/L mmol/L (136-145) Potassium 4.8 mmol/L mmol/L (3.5-5.1) Chloride 105 mmol/L mmol/L (98-107) Carbon Dioxide 23 mmol/L mmol/L (22-29) Anion Gap 15.8 (5-19) BUN 26 mg/dL H mg/dL (8-23) Creatinine 0.8 mg/dL mg/dL (0.5-0.9) GFR Calculation Not Reportable Glucose 111 mg/dL mg/dL (65-115) Calculated Osmolality 293 mOsm/kg mOsm/kg (285-295) Calcium 8.1 mg/dL L mg/dL (8.5-10.5) Total Bilirubin 0.3 mg/dL mg/dL (0.15-1.2) AST 21 U/L U/L (0-32) ALT 18 U/L U/L (0-33) Alkaline Phosphatase 129 IU/L H IU/L (35-105) Total Protein 6.1 g/dL L g/dL (6.6-8.7) Albumin 3.6 g/dL g/dL (3.5-5.2) Globulin 2.5 g/dL g/dL (1.3-4.6) Coronavirus 229E (PCR) Not detected (NOT DETECT) SARS-CoV-2 (PCR) Detected A (NOT DETECT) Discharge Plan Discharge Patient Disposition: Home Clinical Impression: COVID-19, Cerebrovascular accident (CVA) with involvement of left side of body Condition: Stable Prescriptions: No Action aspirin 325 mg tablet,delayed release (DR/EC) 325 mg PO DAILY 0RF paroxetine HCl 10 mg tablet 10 mg PO BID Qty: 60 2RF hydroxyzine pamoate 25 mg capsule 25 mg PO Q6H PRN (Reason: anxiety) Qty: 90 2RF atorvastatin 80 mg tablet 80 mg PO DAILY Qty: 30 2RF lisinopril 10 mg tablet 10 mg PO DAILY Qty: 30 2RF omeprazole 40 mg capsule,delayed release(DR/EC) 40 mg PO DAILY Qty: 30 2RF Rx Instructions: use probiotic and mag daily propranolol 10 mg tablet 10 mg PO BID Qty: 60 2RF oxycodone-acetaminophen 10-325 mg tablet 1 tab PO TID PRN (Reason: Pain) 0RF ibuprofen 200 mg Tablet 200 mg PO Q4H PRN (Reason: Pain) 0RF Discharge Orders: Discharge ED (Routine); Ordered 04/29/21 Ordered By: Chris Jin Referrals: Vicenta Mejia, [Primary Care Provider] - Discharge Diet: Usual diet Discharge Activity: Resume usual activity Patient Instructions: Opioid Safety Activity Restrictions/Additional Instructions: Case management will call to make arrangements for you to receive monoclonal antibodies. If you have any worsening or changes symptoms return to the emergency room monitor your oxygen saturations with a pulse oximeter given to you today if it falls below 90% consistently while at rest return to the emergency room maintain self quarantine until health department clears you. Coding Level of Care Code ED Refinery Operator [facility] for Marlee Fwkristin Exam Comprehensive
--- NOTE | 2021-04-29 15:12 | XR_ITS ---
WS: [id number] XR chest 1V portable [id number] REASON FOR EXAM: cough FINDINGS: The chest appears unchanged compared to 08/09/2016. Significant tortuosity thoracic aorta. Normal heart size. No acute pulmonary parenchymal or pleural abnormality. Thoracic scoliosis convex left with hannah fixation. Discontinuity in both surgical appliances. XR/XR chest 1V portable [id number] IMPRESSION: Stable chest without acute abnormality.
[2021-04-29 15:16] VITALS: BP 90/62; PULSE 76; RESP 16; TEMP 36.8; O2SAT 95
--- NOTE | 2021-04-29 15:36 | CTR_ITS ---
PROCEDURE INFORMATION: Exam: CT Head Without Contrast Exam date and time: 04/29/2021 3:36 PM Age: 70 years old Clinical indication: Left extremity/left-sided weakness for 4 months. History of CVA. TECHNIQUE: Imaging protocol: Computed tomography of the head without contrast. Radiation optimization: All CT scans at this facility use at least one of these dose optimization techniques: automated exposure control; mA and/or kV adjustment per patient size (includes targeted exams where dose is matched to clinical indication); or iterative reconstruction. COMPARISON: CT head wo con* [id number] 01/28/2021 7:57 AM RADIATION DOSE METRICS: Total DLP (mGy-cm): 762.87 FINDINGS: Brain: No acute intracranial hemorrhage. No mass, mass effect or midline shift. There is no evidence of acute large vessel infarct. There is mild patchy subcortical and periventricular hypodensity, most commonly associated with small vessel ischemic disease of indeterminate age. The posterior fossa is grossly unremarkable; however, it is partially obscurred by beam hardening artifact. Cerebral ventricles: The ventricles are prominent, compatible with mild parenchymal volume loss. Paranasal sinuses: The visualized paranasal sinuses are clear. Mastoid air cells: No mastoid effusion. Orbital cavity: The visualized orbits are unremarkable. Bones/joints: No acute fracture is seen. CT/CT head wo con* [id number] IMPRESSION: 1. No evidence of acute large vessel infarct by noncontrast CT. 2. Mild senescent changes as above. 3. No acute intracranial hemorrhage.
[2021-04-29 15:49] LABS: Basophils # 0.1 10^3/uL (0.0-0.1); Basophils % 0.8 %; Eosinophils # 0.2 10^3/uL (0.0-0.8); Eosinophils % 2.7 %; Hematocrit 37.8 % (37.0-47.0); Hemoglobin 12.4 g/dL (11.5-15.3); Lymphocytes # 1.5 10^3/uL (0.8-4.8); Lymphocytes % 22.5 %; Mean Corpuscular HGB Conc 32.8 g/dL (30.0-36.0); Mean Corpuscular Volume 91.5 fl (81-99); Mean Platelet Volume 10.7 fL (7.4-10.4); Monocytes # 0.4 10^3/uL (0.2-0.9); Monocytes % 6.6 %; Neutrophils # 4.45 10^3/uL (1.8-7.7); Neutrophils % 67.2 %; Nucleated Red Blood Cells % 0 %; Platelet Count 239 10^3/cmm (130-400); Red Blood Count 4.13 10^6/uL (4.1-5.3); Red Cell Distribution Width 11.9 % (12.1-15.1); White Blood Count 6.6 10^3/uL (4.0-10.0)
[2021-04-29 16:05] VITALS: BP 81/53; PULSE 62; RESP 15; O2SAT 95
[2021-04-29 16:14] LABS: Alanine Aminotransferase 18 U/L (0-33); Albumin Level 3.6 g/dL (3.5-5.2); Alkaline Phosphatase 129 IU/L (35-105); Anion Gap 15.8 (5-19); Aspartate Amino Transferase 21 U/L (0-32); Blood Urea Nitrogen 26 mg/dL (8-23); Calcium 8.1 mg/dL (8.5-10.5); Carbon Dioxide 23 mmol/L (22-29); Chloride 105 mmol/L (98-107); Globulin 2.5 g/dL (1.3-4.6); Glucose 111 mg/dL (65-115); Osmolality Calculated 293 mOsm/kg (285-295); Potassium 4.8 mmol/L (3.5-5.1); Sodium 139 mmol/L (136-145); Total Bilirubin 0.3 mg/dL (0.15-1.2); Total Protein 6.1 g/dL (6.6-8.7)
[2021-04-29] MEDS: sodium chloride 0.9% 500 ML 999 ML IV ×2 (17:07→18:03)
[2021-04-29 17:11] VITALS: BP 88/65; PULSE 57; RESP 16; O2SAT 97
[2021-04-29 17:36] LABS: Adenovirus Not Detected (NOT DETECT); Chlamydia Pneumoniae Not Detected (NOT DETECT); Coronavirus 229E,HKU1,NL63,OC4 Not Detected (NOT DETECT); Human Metapneumovirus Not Detected (NOT DETECT); Human Rhinovirus/Enterovirus Not Detected (NOT DETECT); Influenza A Not Detected (NOT DETECT); Influenza A H1 Not Detected (NOT DETECT); Influenza A H1-2009 Not Detected (NOT DETECT); Influenza A H3 Not Detected (NOT DETECT); Influenza B Not Detected (NOT DETECT); Mycoplasma Pneumoniae Not Detected (NOT DETECT); Parainfluenza Virus Type 1 Not Detected (NOT DETECT); Parainfluenza Virus Type 2 Not Detected (NOT DETECT); Parainfluenza Virus Type 3 Not Detected (NOT DETECT); Parainfluenza Virus Type 4 Not Detected (NOT DETECT); Respiratory Syncytial Virus A Not Detected (NOT DETECT); Respiratory Syncytial Virus B Not Detected (NOT DETECT); SARS-COV-2 Detected (NOT DETECT)
[2021-04-29 18:04] VITALS: BP 98/66; PULSE 62; RESP 14; O2SAT 97
[2021-04-29 18:31] VITALS: BP 98/66; PULSE 90; RESP 22; O2SAT 99
--- NOTE | 2021-04-30 16:15 | PC.NURSE ---
pt notified of postive covid test
== END 2021-04-29 18:30 | disposition home or self-care (01) ==
PROVIDERS: Emergency Provider Family Medicine; PCP Internal Medicine
DX: U07.1 COVID-19 (principal); I63.9 Cerebral infarction, unspecified; Z79.82 Long term (current) use of aspirin; I10 Essential (primary) hypertension; Z86.73 Personal history of transient ischemic attack (TIA), and cerebral infarction without residual deficits
CPT/HCPCS: 12345; 70450; 71045; 80053; 85025; 87635; 99283; J7040

== ENCOUNTER 2021-05-03 13:56 | Outpatient (CLI) | payer MEDICARE, MEDICAID, SELFPAY ==
[2021-05-03 07:02] VITALS: BP 115/79; PULSE 57; RESP 17; TEMP 36.5; O2SAT 96; BMI 31.3
[2021-05-03 15:14] VITALS: BP 114/73; PULSE 53; RESP 18; TEMP 36.6; O2SAT 98
[2021-05-03 16:14] VITALS: BP 111/73; PULSE 55; RESP 17; TEMP 36.4; O2SAT 99
== END 2021-05-03 13:57 | disposition home or self-care (01) ==
LOC: OPS 14:00
PROVIDERS: PCP Family Medicine; Visit Provider Nurse Practitioner Family
DX: U07.1 COVID-19 (principal)
CPT/HCPCS: 96365

== ENCOUNTER → 2021-06-15 09:00 | Outpatient (BNVA) | payer MEDICARE, MEDICAID, SELFPAY | PROVIDERS: PCP Nurse Practitioner; Visit Provider Nurse Practitioner | DX: F41.1 Generalized anxiety disorder (principal); I10 Essential (primary) hypertension; K21.9 Gastro-esophageal reflux disease without esophagitis | CPT/HCPCS: 80053 ==

== ENCOUNTER 2021-08-05 06:00 | Outpatient (CLI) | payer MEDICARE, MEDICAID, SELFPAY | END 2021-08-05 06:01 | disposition home or self-care (01) | LOC: LAB 01-18 06:45 | PROVIDERS: PCP Nurse Practitioner; Visit Provider Nurse Practitioner | DX: R10.10 Upper abdominal pain, unspecified (principal) | CPT/HCPCS: 81000 ==

== ENCOUNTER 2021-08-30 11:52 | Emergency (ER) | payer MEDICARE, MEDICAID, SELFPAY ==
[2021-08-30] VITALS (14 sets, daily range): BP systolic 84–103; BP diastolic 52–69; PULSE 65–94; RESP 15–22; TEMP 36.7; O2SAT 92–100; BMI 31.4
--- NOTE | 2021-08-30 11:59 | ECG_ITS ---
[facility] Test Date: 2021-08-30 Pat Name: Shirley Medina (Ana) Department: Room: Gender: Female [employer]orer [employer]: : [id number] Requested By: Chris Keating Order Number: [id number] Mari MD: Aguila Ann M.D. Measurements Intervals [place] Rate: 65 P: 7 ND: 154 QRS: 36 QRSD: 83 T: 13 QT: 402 QTc: 420 Interpretive Statements SINUS RHYTHM NONSPECIFIC T-WAVE ABNORMALITY Compared to ECG 01/28/2021 09:38:48 Sinus bradycardia no longer present T-wave abnormality still present Electronically Signed On 08-30-2021 17:10:12 CDT by Aguila Ann M.D. [email or web address]
--- NOTE | 2021-08-30 11:59 | XRR_ITS ---
PROCEDURE INFORMATION: Exam: XR Chest Exam date and time: 08/30/2021 12:18 PM Age: 70 years old Clinical indication: Cough and dyspnea. TECHNIQUE: Imaging protocol: XR of the chest. Views: 1 view. COMPARISON: CR XR chest 1V portable [id number] 04/29/2021 3:20 PM FINDINGS: Lungs: Questionable hazy opacity at the left base. Pleural spaces: Possible small left pleural effusion. No pneumothorax. Heart/Mediastinum: The cardiac silhouette is not well assessed. No gross evidence of pneumomediastinum. Bones/joints: Spinal hardware appears grossly unchanged. Similar appearing scoliosis. No gross fracture. XR/XR chest 1V portable [id number] IMPRESSION: 1. Possible small left pleural effusion. 2. Questionable hazy opacity at the left base. 3. Consider CT chest to better characterize.
--- NOTE | 2021-08-30 11:59 | CT_ITS ---
WS: [id number] CT ABDOMEN PELVIS TECHNIQUE: Noncontrast CT of the abdomen and pelvis with coronal and sagittal reformatted images. CLINICAL INFORMATION: Abdominal pain COMPARISON: CT 2006 DLP: 1447.[address] scans at [facility] use at least one of these dose optimization techniques: automated e xposure control; mA and/or kV adjustment per patient size (includes targeted exams where dose is matc hed to clinical indication); or iterative reconstruction. FINDINGS: Prior postoperative changes gastric bypass. No evidence of high-grade small or large bowel obstruction today. Constipation involving the cecum and RIGHT ascending colon extending into the escobar sverse colon. Tortuous transverse colon. Distal colon is decompressed. Prior LEFT colectomy. Small bowel is decompressed. Urine distended bladder. Postoperative changes both breasts. Lung bases are well aerated. Adrenal glands are normal. Fatty atrophy of the pancreas. Normal caliber abdominal aorta. Mild aortic calcification. No hydronephrosis in either kidney. Advanced S-shaped thoracolumbar scoliosis. Postoperative changes thoracic spine. No other acute findi ngs. Prior hysterectomy. CT/CT abdomen pelvis wo con [id number] IMPRESSION: 1. Numbering no evidence of high-grade small or large bowel obstruction today. 2. There appears to be a prior LEFT hemicolectomy. Dense constipation RIGHT as cending colon and cecum. Distal colon is decompressed. 3. Normal small bowel in the LEFT abdomen. 4. Urine distended bladder. 5. Prior gastric bypass and hysterectomy. 6. Advanced S-shaped thoracolumbar scoliosis.
[2021-08-30 12:13] LABS: ABG PCO2 50.1 mmHg (35-45); ABG PH Result 7.36 (7.35-7.45); Alveolar-Arterial Oxygen Gradi 4.1 mmHg (5-10); Arterial Blood Gas Hematocrit 32.1 % (37-47); Base Excess ABG 2.5 mmol/L (-2.0-2.0); Blood Gas Allen Test Pos; Blood Gas Operator Identificat CAK; Blood Gas Sample Site Radial, left; Blood Gas Sample Type Arterial; Carboxyhemoglobin 0.9 %THgb (0.4-20.1); HCO3 ABG 28.5 mmol/L (22-26); HGB O2 Sat 95.6 % (95-100); Ionized Calcium Level - ABG 1.2 mmol/L (1.1-1.4); Methemoglobin 1.3 % (0.4-1.5); Oxygen Device NC; Oxygen Saturation ABG 97.8; Potassium Level - ABG 4.4 mmol/L (3.5-5.0); Total Hemoglobin 10.5 g/dL (12-16)
--- NOTE | 2021-08-30 12:22 | ED_ITS ---
HPI - Altered Mental Status General: Chief Complaint: Altered Mental Status Stated Complaint: INCREASED LOC/ INCREASED WEAKNESS Time Seen by Provider: 08/30/21 11:59 Source: EMS Mode of arrival: EMS Limitations: altered mental status History of Present Illness: 70-year-old female who presents to the emergency room with altered mental status increased weakness and reported urinary retention. She is recently seen at other ERs at 1 they thought she had urinary retention from fecal impaction and she underwent enemas to relieve it. She continues to have urinary retention family is quite concerned about her they came after initial evaluation I talked to them later in the visit. They have been managing her medications so she is not been taking any extra morphine as first was stopped when she arrived. They are concerned about her continuing decline over the last several weeks and months. MD complaint: altered mental status Onset (ago): hour(s) Severity: severe Consistency of symptoms: Getting Worse Context: history of similar presentation Review of Systems General: Reports: ROS unobtainable due to mental status [facility] ED PFSH: Medical History Acid reflux Acquired scoliosis Apnea, sleep Cerebrovascular accident (CVA) with involvement of left side of body 01/28/2021 HERMINIO (generalized anxiety disorder) Hypertension Migraine Neurofibromatosis Orthostatic hypotension Surgical History History of breast augmentation History of section History of gastric bypass 2015 History of hysterectomy Family History Mother Lung disease Father Stroke Other Cancer Hypertension Denies family history of Diabetes Dementia Social History Smoking and tobacco status: never smoked Second hand smoke exposure: No Smoking risk assessment/counseling performed?: No Alcohol intake: never Desire information about alcohol rehabilitation?: No Counseling given: No Desire information about substance/drug rehabilitation?: No Counseling given: No Adopted: No Caregiver/support person: Yes Lives independently: Yes Household members: none Housing: House Marital status: Number of children: 13 service: No Current occupational status: retired Pets and animals: No History of recent travel: No Current gender identity: Female Physical Exam Const: GENERAL APPEARANCE: lethargic ORIENTATION/CONSCIOUSNESS: Yes lethargic HENMT: COMMON NORMALS: normocephalic and atraumatic HEAD & SCALP: normocephalic and atraumatic Eye: COMMON NORMALS: conjunctivae normal and no scleral icterus CONJUNCTIVA: Yes conjunctivae normal Neck/C-Spine: COMMON NORMALS: full ROM and no lymphadenopathy Resp: COMMON NORMALS: normal respiratory effort and clear to auscultation bilaterally AUSCULTATION: clear to auscultation bilaterally Cardio: COMMON NORMALS: regular rate, regular rhythm and No murmurs present (Cardio) RATE: regular rate RHYTHM: regular rhythm GI: PALPATION: Yes Tenderness to palpation present (GI) (Mild diffuse tenderness) : COMMON NORMALS: Yes no CVA tenderness BLADDER/KIDNEY EXAM: Yes no CVA tenderness Back/Pelvis: COMMON NORMALS: no CVA tenderness Extremity: GENERAL: Yes edema (1+ lower extremity edema) Neuro: SENSORIUM/ORIENTATION: Yes lethargic Course Vital Signs: Vital signs: Vital Signs Temperature 98.1 F 08/30/21 11:59 Pulse Rate 82 08/30/21 16:28 Respiratory Rate 16 08/30/21 16:07 Blood Pressure 84/58 08/30/21 16:28 Pulse Oximetry 96 08/30/21 16:07 MDM - Altered Mental Status Medical Decision Making Long discussion with family patient has had some cognitive difficulties she has severe pain requires a fair amount of narcotics or she has pain that is so difficult she cannot really deal with it. She has a lot of urinary retention Lamb was placed here they like to go home with a Lamb and consult hospice. She does have a mild bladder infection we will start her on Macrobid. Initially we talked about admitting her they would prefer to just go home. I do believe she needs half-way level of care family is committed to caring for her at home and does not want to do that. We will go ahead and discharge her home, hospice capacity consult in the home. Medical Records I reviewed the patient's medical records. Lab Data I reviewed the patient's lab results. : 08/30/21 11:27 08/30/21 14:25 Radiology Impressions Abdomen/Pelvis CT 08/30/21 11:59 IMPRESSION: 1. Numbering no evidence of high-grade small or large bowel obstruction today. 2. There appears to be a prior LEFT hemicolectomy. Dense constipation RIGHT ascending colon and cecum. Distal colon is decompressed. 3. Normal small bowel in the LEFT abdomen. 4. Urine distended bladder. 5. Prior gastric bypass and hysterectomy. 6. Advanced S-shaped thoracolumbar scoliosis. Chest X-Ray 08/30/21 11:59 IMPRESSION: 1. Possible small left pleural effusion. 2. Questionable hazy opacity at the left base. 3. Consider CT chest to better characterize. Head CT 08/30/21 14:11 IMPRESSION: 1. No evidence of intracranial hemorrhage or mass effect. 2. Mild small vessel changes with mild parenchymal volume loss. 3. No acute intracranial findings. Laboratory Results WBC 7.6 10^3/uL (4.0-10.0) 08/30/21 11: RBC 4.29 10^6/uL (4.1-5.3) 08/30/21 11:27 Hgb 11.6 g/dL (11.5-15.3) 08/30/21 11:27 Hct 37.9 % (37.0-47.0) 08/30/21 11:27 MCV 88.3 fl (81-99) 08/30/21 11:27 MCH 27.0 pg (28.0-34.0) L 08/30/21 11:27 MCHC 30.6 g/dL (30.0-36.0) 08/30/21 11:27 RDW 13.1 % (12.1-15.1) 08/30/21 11:27 Plt Count 291 10^3/cmm (130-400) 08/30/21 11:27 MPV 11.1 fL (7.4-10.4) H 08/30/21 11:27 Neut % (Auto) 75.0 % 08/30/21 11:27 Lymph % (Auto) 14.6 % 08/30/21 11:27 [place] % (Auto) 5.6 % 08/30/21 11:27 Eos % (Auto) 3.7 % 08/30/21 11:27 Baso % (Auto) 0.7 % 08/30/21 11:27 Neut # (Auto) 5.67 10^3/uL (1.8-7.7) 08/30/21 11:27 Lymph # (Auto) 1.1 10^3/uL (0.8-4.8) 08/30/21 11:27 [place] # (Auto) 0.4 10^3/uL (0.2-0.9) 08/30/21 11: Eos # (Auto) 0.3 10^3/uL (0.0-0.8) 08/30/21 11:27 Baso # (Auto) 0.1 10^3/uL (0.0-0.1) 08/30/21 11: Nucleated RBC % (auto) 0 % 08/30/21 11: Nucleated RBCs # 0.0 /100WBC 08/30/21 11:27 Specimen Type Arterial 08/30/21 12:02 Sample Site Radial, left 08/30/21 12:02 ABG pH 7.36 (7.35-7.45) 08/30/21 12:02 ABG pCO2 50.1 mmHg (35-45) H 08/30/21 12:02 ABG pO2 106.0 mmHg (80.0-100.0) H 08/30/21 12:02 ABG HCO3 28.5 mmol/L (22-26) H 08/30/21 12:02 ABG O2 Saturation 97.8 08/30/21 12:02 ABG Base Excess 2.5 mmol/L (-2.0-2.0) H 08/30/21 12:02 Alberto Test Pos 08/30/21 12:02 A-a O2 Gradient 4.1 mmHg (5-10) L 08/30/21 12:02 Hematocrit 32.1 % (37-47) L 08/30/21 12:02 Hgb O2 Saturation 95.6 % (95-100) 08/30/21 12:02 Carboxyhemoglobin 0.9 %THgb (0.4-20.1) 08/30/21 12:02 Methemoglobin 1.3 % (0.4-1.5) 08/30/21 12:02 Total Hemoglobin 10.5 g/dL (12-16) L 08/30/21 12:02 Sodium 140.0 mmol/L (131-143) 08/30/21 12:02 Potassium 4.4 mmol/L (3.5-5.0) 08/30/21 12:02 Glucose 84.0 mg/dL (70-115) 08/30/21 12:02 Ionized Calcium 1.2 mmol/L (1.1-1.4) 08/30/21 12:02 O2 Delivery Device Nc 08/30/21 12:02 O2 Liters/Min 2.0 % 08/30/21 12:02 FiO2 28.0 % 08/30/21 12:02 Operating Room Technologist ID Cak 08/30/21 12:02 Sodium 136 mmol/L (136-145) 08/30/21 14:25 Potassium 4.2 mmol/L (3.5-5.1) 08/30/21 14:25 Chloride 103 mmol/L (98-107) 08/30/21 14:25 Carbon Dioxide 23 mmol/L (22-29) 08/30/21 14:25 Anion Gap 14.2 (5-19) 08/30/21 14:25 BUN 31 mg/dL (8-23) H 08/30/21 14:25 Creatinine 0.9 mg/dL (0.5-0.9) 08/30/21 14:25 GFR Calculation Not Reportable 08/30/21 14:25 Glucose 78 mg/dL (65-115) 08/30/21 14:25 Calculated Osmolality 287 mOsm/kg (285-295) 08/30/21 14:25 Calcium 7.6 mg/dL (8.5-10.5) L 08/30/21 14:25 Total Bilirubin 0.3 mg/dL (0.15-1.2) 08/30/21 14:25 AST 23 U/L (0-32) 08/30/21 14:25 ALT 16 U/L (0-33) 08/30/21 14:25 Alkaline Phosphatase 151 IU/L (35-105) H 08/30/21 14:25 Total Protein 5.7 g/dL (6.6-8.7) L 08/30/21 14:25 Albumin 2.9 g/dL (3.5-5.2) L 08/30/21 14:25 Globulin 2.8 g/dL (1.3-4.6) 08/30/21 14:25 Urine Color Yellow (Yellow) 08/30/21 15:17 Urine Appearance Clear (CLEAR) 08/30/21 15:17 Urine pH 5.0 (5-7) 08/30/21 15:17 Ur Specific Baker 1.020 (1.005-1.030) 08/30/21 15:17 Urine Protein Neg (Negative) 08/30/21 15:17 Urine Glucose (UA) Norm (Normal) 08/30/21 15:17 Urine Ketones 1+ (Negative) H 08/30/21 15:17 Urine Blood Neg (Negative) 08/30/21 15:17 Urine Nitrate Negative (Negative) 08/30/21 15:17 Urine Bilirubin 1+ (Negative) H 08/30/21 15:17 Urine Urobilinogen Norm mg/dL (Negative) 08/30/21 15:17 Ur Leukocyte Esterase Trace (Negative) H 08/30/21 15:17 Urine RBC None /hpf (0-2) 08/30/21 15:17 Urine WBC 5-10 /hpf (0-5) H 08/30/21 15:17 Ur Squamous Epith Cells 0-4 /hpf (0-5) H 08/30/21 15:17 Calcium Oxalate Crystal 5-10 /hpf H 08/30/21 15:17 Amorphous Sediment Not Reportable 08/30/21 15:17 Urine Bacteria 1+ /hpf (NONE) H 08/30/21 15:17 Hyaline Casts 10-15 /lpf H 08/30/21 15:17 Urine Mucus 2+ /hpf 08/30/21 15:17 Discharge Plan Discharge Patient Disposition: Home Clinical Impression: Urinary retention, Dementia, Chronic back pain Condition: Stable Prescriptions: New Macrobid 100 mg capsule 100 mg PO BID 7 Days Qty: 14 0RF Rx Instructions: must administer with a meal/food No Action hydroxyzine pamoate 50 mg capsule 50 mg PO Q6H Qty: 90 2RF Rx Instructions: dose increase atorvastatin 80 mg tablet 80 mg PO DAILY Qty: 30 2RF omeprazole 40 mg capsule,delayed release(DR/EC) 40 mg PO DAILY Qty: 30 2RF Rx Instructions: use probiotic and mag daily paroxetine HCl 20 mg tablet 20 mg PO BID Qty: 60 2RF propranolol 10 mg tablet 10 mg PO BID Qty: 60 2RF (DME) Wheelchair See Rx Instructions .Route .MEDSUPPLY Qty: 1 0RF Rx Instructions: As directed morphine 15 mg tablet extended release 15 mg PO BID 0RF (DME) Tyson Lift [id number] See Rx Instructions .Route .MEDSUPPLY Qty: 1 0RF Rx Instructions: As directed morphine 15 mg tablet 15 mg PO Q6H PRN (Reason: Pain) 0RF pregabalin 50 mg Capsule 50 mg PO TID 0RF Discharge Orders: Discharge ED (Routine); Ordered 08/30/21 Ordered By: Chris Jin Referrals: Vickie Ugalde, HAZMAT TRUCK DRIVER-C [Primary Care Provider] - Discharge Diet: Usual diet Discharge Activity: Increase activity as tolerated Activity Restrictions/Additional Instructions: Hospice [facility] will consult in your home. Coding Level of Care Code ED Fashion Consultant for Marlee Rosales
[2021-08-30 12:38] LABS: Basophils # 0.1 10^3/uL (0.0-0.1); Basophils % 0.7 %; Eosinophils # 0.3 10^3/uL (0.0-0.8); Eosinophils % 3.7 %; Hematocrit 37.9 % (37.0-47.0); Hemoglobin 11.6 g/dL (11.5-15.3); Lymphocytes # 1.1 10^3/uL (0.8-4.8); Lymphocytes % 14.6 %; Mean Corpuscular HGB Conc 30.6 g/dL (30.0-36.0); Mean Corpuscular Volume 88.3 fl (81-99); Mean Platelet Volume 11.1 fL (7.4-10.4); Monocytes # 0.4 10^3/uL (0.2-0.9); Monocytes % 5.6 %; Neutrophils # 5.67 10^3/uL (1.8-7.7); Nucleated Red Blood Cells % 0 %; Platelet Count 291 10^3/cmm (130-400); Red Blood Count 4.29 10^6/uL (4.1-5.3); Red Cell Distribution Width 13.1 % (12.1-15.1); White Blood Count 7.6 10^3/uL (4.0-10.0)
[2021-08-30] MEDS: sodium chloride 0.9% 1,000 ML 999 ML IV (12:52)
[2021-08-30 13:34] LABS: Slide Review Slide Review Perform
--- NOTE | 2021-08-30 14:11 | CT_ITS ---
WS: [id number] CT HEAD TECHNIQUE: Noncontrast CT of the head obtained from the skullbase to the vertex. CLINICAL INFORMATION: AMS COMPARISON: CT April 29, 2021 DLP: 519.[address] scans at [facility] use at least one of these dose optimization techniques: automated e xposure control; mA and/or kV adjustment per patient size (includes targeted exams where dose is matc hed to clinical indication); or iterative reconstruction. FINDINGS: No evidence of intracranial hemorrhage or mass effect. Ventricular system and basal cisterns are lomeli nt. Mild small vessel changes with mild parenchymal volume loss. No extra-axial fluid collections. No evidence of mass or mass effect Paranasal sinuses and mastoid air cells are well aerated. .Normal visualized soft tissues. CT/CT head wo con* [id number] IMPRESSION: 1. No evidence of intracranial hemorrhage or mass effect. 2. Mild small vessel changes with mild parenchymal volume loss. 3. No acute intracranial findings.
[2021-08-30 14:56] LABS: Alanine Aminotransferase 16 U/L (0-33); Albumin Level 2.9 g/dL (3.5-5.2); Alkaline Phosphatase 151 IU/L (35-105); Anion Gap 14.2 (5-19); Aspartate Amino Transferase 23 U/L (0-32); Blood Urea Nitrogen 31 mg/dL (8-23); Calcium 7.6 mg/dL (8.5-10.5); Carbon Dioxide 23 mmol/L (22-29); Chloride 103 mmol/L (98-107); Globulin 2.8 g/dL (1.3-4.6); Glucose 78 mg/dL (65-115); Osmolality Calculated 287 mOsm/kg (285-295); Potassium 4.2 mmol/L (3.5-5.1); Sodium 136 mmol/L (136-145); Total Bilirubin 0.3 mg/dL (0.15-1.2); Total Protein 5.7 g/dL (6.6-8.7)
[2021-08-30 15:58] LABS: Urine Appearance Clear (CLEAR); Urine Color Yellow (Yellow)
[2021-08-30 15:59] LABS: Bilirubin Urine 1+ (Negative); Blood Urine Neg (Negative); Glucose Urine UA Norm (Normal); Ketones Urine 1+ (Negative); Leukocyte Esterase Urine Trace (Negative); Nitrate Urine Negative (Negative); Protein Urine Neg (Negative); Urobilinogen Urine Norm (Negative)
[2021-08-30 16:00] LABS: Add Urine Microscopic? YES
[2021-08-30 16:03] LABS: Bacteria Urine 1+ /hpf; Mucus Urine 2+ /hpf; Squamous Epithelial Cell Urine 0-4 /hpf (0-5)
[2021-08-30 16:04] LABS: Add Urine Culture? No
[2021-08-30] MEDS: ipratropium-albuterol 3 mL Neb INHALATION (16:06)
[2021-08-30] MEDS: levofloxacin-dextrose 5 % 750 MG/150 ML PREMIX 100 MG IV (16:21)
== END 2021-08-30 18:07 | disposition home or self-care (01) ==
PROVIDERS: Emergency Provider Family Medicine; PCP Nurse Practitioner
DX: R33.9 Retention of urine, unspecified (principal); F03.90 Unspecified dementia, unspecified severity, without behavioral disturbance, psychotic disturbance, mood disturbance, and anxiety; M54.9 Dorsalgia, unspecified; G89.29 Other chronic pain; I10 Essential (primary) hypertension; Z86.73 Personal history of transient ischemic attack (TIA), and cerebral infarction without residual deficits
CPT/HCPCS: 36415; 36600; 51702; 70450; 71045; 74176; 80051; 80053; 81001; 82330; 82805; 85025; 87040; 87077; 87150; 87186; 87205; 93005; 94640; 96365; 99285; J1956; J7030